=== PATIENT | female | born 1950 ===

== ENCOUNTER 2017-06-15 03:24 | Observation (INO) | payer MEDICARE, OTHER ==
[2017-06-15] VITALS (11 sets, daily range): BP systolic 119–140; BP diastolic 69–79
[~2017-06-15] VITALS: Ht 167.6 cm; Wt 88.5 kg
[~2017-06-15 03:24] MED LIST: IBUP200C71 PO; IBUP600T22 PO; IRBE1TAB PO; OMEG-96 PO; PANT40TA65 PO; PRAV20TA65 PO; UBID1CAP3 PO; ceFAZolin(*) 2GM/D5W 50ML 50 ML IVPB ONE
[2017-06-15] MEDS ORDERED: NORMOSOL R SOLN(*) 1000 ML BAG 1,000 ML IV PRN (09:30)
[2017-06-15] MEDS ORDERED: MIDAZOLAM 2 MG/2 ML VIAL IVP PRN (09:30)
[2017-06-15] MEDS ORDERED: LIDOCAINE/SOD BICARB 8.4% SYR ID ONE (09:30)
[2017-06-15] MEDS ORDERED: THROMBIN (BOVINE) 20,000 UNIT VIAL ONE (12:41)
[2017-06-15 12:50] LABS: PLATELET COUNT, AUTOMATED 318 K/uL (150-450)
[2017-06-15] MEDS ORDERED: NS(*) 0.9% 500 ML BAG 500 ML ONE (13:42)
[2017-06-15] MEDS ORDERED: ceFAZolin(*) 2GM/D5W 50ML 50 ML IVPB ONE (13:55)
[2017-06-15] MEDS ORDERED: fentaNYL CITR 250 MCG/5 ML AMP ONE (14:35)
[2017-06-15] MEDS ORDERED: fentaNYL CITR 100 MCG/2 ML AMP ONE ×3 (14:46→16:36)
[2017-06-15] MEDS ORDERED: NS 0.9% IRRIGATION 1000ML PLCT IR ONE (15:44)
--- NOTE | 2017-06-15 17:34 | RADIOLOGY IMAGING REPORT ---
FACILITY: [facility] - [place] PATIENT NAME: Maria D Zimmer : 1950 MR: [id number] V: [id number] EXAM DATE: ORDERING PHYSICIAN: ANTHONY NORIEGA TECHNOLOGIST: Location: [facility] - [place] Patient: Maria D Zimmer : 1950 Visit/Account:[id number] Date of Sevice: 06/15/2017 Exam type: CERVICAL SPINE 1 VIEW History: C4-C7 DISC HERNIATIONS Comparison: None. Findings: Two supine intraoperative cross table lateral views of the cervical spine were submitted. There is a n endotracheal tube in place This a metallic probe projecting over the anterior aspect of the C4-5 vertebral bodies Additional image demonstrates anterior fusion at C4-5 C5-6 and C6-7 with metallic hardware IMPRESSION: 1. As above Report Dictated By: Inna Canas MD at 06/15/2017 5:29 PM Report E-Signed By: Inna Canas MD at 06/15/2017 5:31 PM WSN:[email or web address]
[2017-06-15] MEDS ORDERED: ONDANSETRON 4 MG/2 ML VIAL IVP PRN (18:00)
[2017-06-15] MEDS ORDERED: MAGNESIUM HYDROXIDE* 30ML UDCP PO PRN (18:00)
[2017-06-15] MEDS ORDERED: ACETAMINOPHEN(*)1000 MG/100 ML 100 ML IVPB PRN (18:00)
[2017-06-15] MEDS ORDERED: ACETAMINOPHEN 500 MG TAB PO PRN (18:00)
[2017-06-15] MEDS ORDERED: diphenhydrAMINE 25 MG CAP PO PRN (18:00)
[2017-06-15] MEDS ORDERED: LR(*) 1000 ML BAG 1,000 ML IV PRN (18:00)
[2017-06-15] MEDS ORDERED: FLUSH 10 ML SYR IVP PRN (18:00)
[2017-06-15] MEDS ORDERED: BISACODYL 10 MG SUPP PR PRN (18:00)
[2017-06-15] MEDS ORDERED: APAP/HYDROCODONE 325/5 TAB PO PRN (18:00)
[2017-06-15] MEDS ORDERED: DIAZEPAM 5 MG TAB PO PRN (18:00)
[2017-06-15] MEDS ORDERED: HYDROmorphone HCL 2 MG/ML SDV IVP PRN (18:00)
--- NOTE | 2017-06-15 20:38 | Hospitalist Consultation ---
History of Present Illness Requesting Physician Dr. Castro Reason for Consult Essential hypertension History of Present Illness This patient was admitted for cervical spine surgery. It is reported that the surgery went well and was without complication. History Problems: (1) Essential hypertension Home Meds Reported Medications Ibuprofen (IBUPROFEN) 200 Mg Capsule, 1 CAP PO QID Y for PAIN, CAPSULE 06/09/17 Ubidecarenone/Vitamin E Mixed (Nwd22-Wad E 200 mg-20 Unit Sfg) 200 Mg-20 Unit Capsule, 200 MG PO DAILY 06/09/17 [place]-3 Fatty Acids/Fish Oil (OMEGA 3 1,000 MG SOFTGEL) 1 Each Capsule, 1 EACH PO QDAY, CAPSULE 06/09/17 Pantoprazole Sodium (PANTOPRAZOLE SODIUM) 40 Mg Tablet.dr, 40 MG PO QDAY, TAB.SR 06/09/17 Irbesartan/Hydrochlorothiazide (IRBESARTAN-HCTZ 300-12.5 MG TB) 1 Each Tablet, 1 EACH PO QDAY, TAB 06/09/17 Pravastatin Sodium (PRAVACHOL) 20 Mg Tablet, 40 MG PO QDAY, TAB 06/09/17 Discontinued Reported Medications Ibuprofen (IBUPROFEN) 600 Mg Tablet, 1 TAB PO Q6H, TAB 06/09/17 Allergies: Coded Allergies: No Known Drug Allergies (Unverified , 06/09/17) Patient History: FH: CAD (coronary artery disease) FATHER, FH: [place] (myocardial infarction) MOTHER, FH: arthritis MOTHER, FH: suicide FATHER, Hx Smoking: No Smoking Status: Never Smoker Caffeine Intake: Coffee Caffeine/Cups Per Day: 1 CUP DAILY Hx Alcohol Use: No Hx Substance Use Disorder: No Review of Systems All Systems Reviewed/Normal: Yes Exam Vital Signs Vital Signs Date Time Temp Pulse Resp B/P (MAP) Pulse Ox O2 Delivery O2 Flow Rate FiO2 06/15/17 19:27 66 16 98 06/15/17 13:08 98.1 140/79 (99) Room Air Neuro: No Gross deficits Eyes: PERRLA Cardiovascular: Regular Rate and Rhythm Respiratory: Clear to Auscultation Extremities: No Edema Integumentary: No Cyanosis Medical Decision Making Data Points Result Diagram: 06/15/17 1244 Assessment and Plan Problems: (1) Essential hypertension Assessment & Plan: She is on chronic treatment with irbesartan/ hydrochlorothiazide. The irbesartan has been ordered with hold parameters. Venous Thromboembolism Antithrombotics Is Pt On Any Antithrombotics?: No GAEL MENDOZA DO Jun 15, 2017 20:38
[2017-06-15] MEDS: oxyCODONE HCL 5 MG CAP PO PRN ×2 (20:41→21:10)
[2017-06-15] MEDS: DOCUSATE SODIUM 100 MG CAP PO SCH (20:41)
[2017-06-15] MEDS: BENZOCAINE/MENTHOL 1 EACH LOZG PO PRN (20:48)
[2017-06-15] MEDS: ceFAZolin(*) 1 GM VIAL 2 GM in NS(*) 0.9% 100 ML BAG 100 ML IVPB SCH (22:11)
[2017-06-16] VITALS: BP 118/63
[2017-06-16 03:27] VITALS: BP 124/72
[2017-06-16] MEDS: oxyCODONE HCL 5 MG CAP PO PRN ×2 (03:34→13:21)
[2017-06-16] MEDS: ceFAZolin(*) 1 GM VIAL 2 GM in NS(*) 0.9% 100 ML BAG 100 ML IVPB SCH ×2 (05:59→13:21)
[2017-06-16] MEDS: BENZOCAINE/MENTHOL 1 EACH LOZG PO PRN (06:05)
[2017-06-16 07:42] VITALS: BP 98/72
--- NOTE | 2017-06-16 07:55 | Hospitalist Progress Note ---
Subjective Progress Notes Subjective Patient has no complaints this morning. She states she is ready to go home. Patient Complains of: Cardiovascular: No: Chest Pain Respiratory: No: Shortness of Breath Physical Exam Vital Signs Date Time Temp Pulse Resp B/P (MAP) Pulse Ox O2 Delivery O2 Flow Rate FiO2 06/16/17 03:27 98.4 62 12 124/72 (89) 93 Nasal Cannula 0.5 Intake and Output 06/17/17 07:00 # Voids 1 General Appearance: Alert, Awake, No Acute Distress, Afebrile Cardiovascular: Regular Rate and Rhythm Respiratory: No Respiratory Distress, Clear to Auscultation Psych: Alert & Oriented X3, Appropriate Mood & Affect Result Diagram: 06/15/17 1244 Assessment and Plan Problems: (1) Essential hypertension Assessment & Plan: She is on chronic treatment with irbesartan/ hydrochlorothiazide. The irbesartan/hydrochlorothiazide should be held until she follows up with her primary care doctor secondary to hypotension. Exam Sepsis Risk: No Definite Risk CORTNEY LONG Jun 16, 2017 07:55
[2017-06-16 08:55] VITALS: BP 130/59
[2017-06-16] MEDS: DOCUSATE SODIUM 100 MG CAP PO SCH (08:58)
[2017-06-16] MEDS ORDERED: PANTOPRAZOLE SOD 40 MG TABEC PO SCH (09:00)
[2017-06-16] MEDS ORDERED: PRAVASTATIN SOD 20 MG TAB PO SCH (09:00)
[2017-06-16] MEDS ORDERED: IRBESARTAN 150 MG TAB PO SCH (09:00)
[2017-06-16 10:56] VITALS: BP 125/60
--- NOTE | 2017-06-16 13:21 | RADIOLOGY IMAGING REPORT ---
FACILITY: [facility] PATIENT NAME: Maria D Zimmer : 1950 MR: [id number] V: [id number] EXAM DATE: ORDERING PHYSICIAN: ANTHONY NORIEGA TECHNOLOGIST: Location: [facility] Patient: Maria D Zimmer : 1950 Visit/Account:[id number] Date of Sevice: 06/16/2017 Exam type: 2 views cervical spine History: Postop C-spine fusion Comparison: MRI 05/07/2017. Findings: Postoperative changes are noted from intervertebral body fusion of C4-C7 without hardware complicatio n. AP alignment and facet alignment is appropriate. Facet arthropathy at these levels is noted. IMPRESSION: 1. Postoperative changes are noted from intervertebral body fusion of C4-C7 without hardware competi tion. Report Dictated By: Yomi Tello MD at 06/16/2017 1:13 PM Report E-Signed By: Yomi Tello MD at 06/16/2017 1:15 PM WSN:[email or web address]
[2017-06-16 14:22] VITALS: Ht 167.6 cm; Wt 88.5 kg
--- NOTE | 2017-06-24 17:20 | OPERATIVE REPORT 1 ---
EVENT DATE: June 15, 2017 SURGEON: Anthony Castro MD ANESTHESIOLOGIST: Shailesh Steiner MD ANESTHESIA: General endotracheal anesthesia. 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 PROCEDURE PERFORMED C4 through C7 anterior cervical discectomies and fusions. INTRAVENOUS FLUIDS 1400 mL ESTIMATED BLOOD LOSS 35 mL IMPLANTS 6 mm lordotic size small interbody implants from [employer] times three, 3.5 x 14 mm fixation screws from [employer] times six, and 1 cc ViBone bone graft times three. SPECIMENS None. DRAINS A 10-German round Carlos-Stephens drain through the front of the neck. COMPLICATIONS None. DISPOSITION Post-anesthesia care unit. INDICATIONS FOR SURGERY Ms. Zimmer is a 66-year-old female who presented to my clinic with the complaint of right upper extremity pain, numbness, and tingling in the periscapular region , down the triceps, dorsal forearm, as well as over the biceps from time to time. She was complaining of worsening handwriting, an unsteady feeling while walking, and difficulties with upper extremity fine motor skills. Her physical examination was significant for a positive Spurling maneuver to the right, negative to the left. She had weakness in the right deltoids, biceps, and triceps. She had six beats of clonus bilaterally with hyperactive deep tendon reflexes and a positive Jamil sign bilaterally. Her imaging studies showed significant cord compression at C4-C5 and right greater than left severe bilateral neural foraminal narrowing at C5-C6 and C6-C7. Secondary to ongoing symptoms and failure to improve with nonsurgical care, coupled with the fact that she had symptoms consistent with myelopathy, Ms. Zimmer was offered and elected to undergo multi-level cervical discectomy and fusion at C4-C5, C5-C6, and C6-C7. CONSENT Prior to surgery, I explained in detail to the patient the possible risks of surgery. These include the risks of bleeding, infection, nerve root injury, spinal cord injury, persistent and/or worsening pain, and need for further surgery. Anterior cervical spine approach also carries with it risks of damage to the superior or recurrent laryngeal nerve, damage to the esophagus or carotid sheath, damage to the trachea or other anterior cervical structures. She voiced an understanding and wished to proceed. DESCRIPTION OF PROCEDURE On the day of surgery, the patient was met in the preoperative hold area, and all questions were answered. The operative site was identified and marked by myself. The patient was brought in good condition to the operating room, and neurophysiologic monitoring was begun. The patient was positioned in the supine position on a standard OR bed with the neck slightly extended. The elbows were padded and the arms secured loosely at the sides to afford access to the anterior cervical spine. A final timeout was undertaken by members of the operating team to confirm correct patient, correct levels, and correct surgery. Care was taken to maintain appropriate perfusion pressures throughout anesthesia, and antibiotics were administered according to the appropriate timing schedule. All bony protuberances and soft tissues were well padded in the standard fashion. An incision was made in the skin overlying the intended surgical levels. Sharp dissection was taken down to the platysma which was divided. The interval medial to the sternocleidomastoid muscle was identified, and blunt finger dissection was taken medial to the carotid sheath to establish space anterior to the cervical spine in the retropharyngeal space. A self- retaining retractor was placed and distracted, exposing the C4-C5 level. A 15 blade was used to incise the outer annulus of C4-C5. This was removed using a pituitary rongeur. Progressively smaller curettes were used to perform a discectomy out to the width of the uncovertebral joints bilaterally and progressively working towards the posterior aspect of the disk space. Cloward spreaders were then placed to afford better access to the disk space. This was all done utilizing a microscope. A high-speed bur was used to remove the posterior osteophyte and then identify the posterior longitudinal ligament. A combination of forward-angled curettes and a nerve hook was used to dissect through the posterior longitudinal ligament, which was taken down with #1 and # 2 Kerrison rongeurs. The posterior osteophytes were removed utilizing Kerrison rongeurs, and at the conclusion of the decompression, a nerve hook was passed behind the vertebral bodies to ensure complete decompression of the cord as well as out the bilateral neural foramen. At this point, we carefully prepared the inferior endplate of C4 and the superior endplate of C5. This was done using a high-speed bur, ensuring that all cartilaginous fragments were removed. We exposed bony bleeding across both surfaces of the disk space. A 6 mm rasp was then used to further prepare the disk space, and then a 6 mm interbody implant was chosen. This was tapped into place using the insertion device and then countersunk about 1 mm. The awl was used through the holes in the implant to penetrate the endplates, and then 3.5 mm x 14 mm screws were placed both superiorly into C4 and inferiorly into C5. Attention was then turned to the C5- C6 level where the above-mentioned steps were repeated, again incising the anterior annulus, taking out the disk with progressively smaller curettes, and then ensuring an adequate bilateral foraminal and canal decompression. Again, a 6 mm implant was chosen, inserted, and affixed in the same way as at C4-C5. We then turned our attention to C6-C7, and all steps were repeated once again. At all levels, care was taken at the end of the decompression to ensure good decompression of both the spinal cord and the neural foramen bilaterally. The wound was then irrigated with copious sterile saline solution. Meticulous hemostasis was obtained. The wound was closed in layers using interrupted sutures for the platysma, inverted interrupted sutures for the subcutaneous tissue, and a running subcuticular skin stitch. A lateral radiograph was obtained that confirmed excellent positioning of the implants. A drain was left deep to the platysma. Sponge and needle counts were correct times two. POSTOPERATIVE CARE PLAN Ms. Zimmer will remain in the hospital overnight and then be discharged home after her drain is pulled. She will follow up in two weeks' time for wound check and examination. RAUL
== END 2017-06-16 09:02 | disposition home or self-care (01) ==
LOC: OR 03:24 → MED 19:27
PROVIDERS: ADMIT Orthopaedic Surgery; ATTEND Orthopaedic Surgery
DX: M50.123 Cervical disc disorder at C6-C7 level with radiculopathy (principal)
CPT/HCPCS: 20930; 22548; 36415; 63075; 63076; 72020; 72040; 85025; 97161; A9270; C1713; G0378; J0690; J3010; J7040; J7050